=== PATIENT | female | born 1935 | race Caucasian/White ===

== ENCOUNTER 2018-01-14 15:18 | Inpatient (IN) | payer BC ==
[~2018-01-14] VITALS: Ht 160 cm; Wt 69.9 kg
[2018-01-14 15:18] VITALS: BP_SYST 147
[2018-01-14] MEDS ORDERED: NACL 0.9% 1,000 ML IV ONE ×2 (15:45→16:45)
[2018-01-14 15:47] LABS: BILIRUBIN,URINE NEGATIVE (NEGATIVE); COLOR,URINE YELLOW (YELLOW); GLUCOSE,URINE 2+ (NEGATIVE); KETONES,URINE NEGATIVE (NEGATIVE); NITRITE, URINE NEGATIVE (NEGATIVE); PROTEIN URINE 2+ (NEGATIVE)
[2018-01-14 15:57] LABS: BLOOD, URINE TRACE (NEGATIVE); CLARITY/URINE HAZY (CLEAR); LEUKOCYTE ESTERASE ,URINE TRACE (NEGATIVE)
[2018-01-14 15:58] LABS: BACTERIA,URINE FEW /HPF (None Seen); MUCUS,URINE None Seen /LPF (None Seen); RBC,URINE NONE SEEN /HPF (0-3)
[2018-01-14 15:59] LABS: BARBITURATE, URINE NEGATIVE (NEG <=200); BENZODIAZEPINE, URINE POSITIVE (NEG <=150); CANNABINOID, URINE NEGATIVE (NEG <=50); COCAINE, URINE NEGATIVE (NEG <=150); METHAMPHETAMINES SCREEN,URINE NEGATIVE (NEG <=500); OPIATE, URINE NEGATIVE (NEG <=100); PHENCYCLIDINE SCREEN,URINE NEGATIVE (NEG <=25); UR TRICYCLIC ANTIDEPRESSANTS NEGATIVE (NEG <=300); URINE AMPHETAMINE NEGATIVE (NEG <=500); URINE METHADONE NEGATIVE (NEG <=200); URINE OXYCODONE SCREEN NEGATIVE (NEG <=100); URINE PROPOXYPHENE SCREEN NEGATIVE (NEG <=300)
[2018-01-14 16:06] LABS: HEMATOCRIT 35.5 % (36-48); HEMOGLOBIN 12.3 g/dL (12.0-16.0); MEAN CORPUSCULAR HEMOGLOBIN 30 pg (27-31); MEAN CORPUSCULAR HGB CONC 35 % (32-36); MEAN CORPUSCULAR VOLUME 88 fL (79.0-98.0); PLATELET COUNT (AUTO) 198 K/uL (130-430); RED BLOOD CELL COUNT(AUTO) 4.03 MIL/uL (4.2-6.2); WHITE BLOOD COUNT (AUTO) 17.9 K/uL (4.8-10.8)
[2018-01-14 16:07] LABS: INR 1.1 (0.8-1.2); PROTHROMBIN TIME 10.8 SECS (9.5-12.5)
[2018-01-14 16:08] LABS: ANION GAP 13 (5-15); CALCIUM 8.8 mg/dL (8.4-11.0); CHLORIDE 102 mmol/L (98-107); GLUCOSE 177 mg/dL (70-99); POTASSIUM 3.6 mmol/L (3.5-5.1); SODIUM SERUM 137 mmol/L (136-145); UREA NITROGEN, BLOOD 22 mg/dL (8-21)
[2018-01-14 16:13] LABS: ALANINE AMINOTRANSFERASE 16 U/L (12-78); ALBUMIN 3.6 g/dL (3.4-4.8); ASPARTATE AMINOTRANSFERASE 18 U/L (10-37); TOTAL BILIRUBIN 0.6 mg/dL (0.0-1.0)
[2018-01-14 16:20] LABS: BAND % (MANUAL) 6 % (0-6); BASOPHILS % (MANUAL) 0 % (0-2); EOSINOPHILS % (MANUAL) 0 % (0-7); LYMPHOCYTES % (MANUAL) 4 % (20-46); MONOCYTES % (MANUAL) 3 % (0-11)
[2018-01-14] MEDS ORDERED: ACETAMINOPHEN 500 MG TABLET PO ONE (16:30)
[2018-01-14] MEDS ORDERED: cefTRIAXone 1 GM IVPB PREMIX 50 ML IV ONE (16:30)
[2018-01-14] MEDS ORDERED: JANUVIA PO (16:48)
[2018-01-14] MEDS ORDERED: POTASSIUM PO (16:48)
[2018-01-14] MEDS ORDERED: ASPIRIN PO (16:48)
[2018-01-14] MEDS ORDERED: METOPROLOL (16:48)
[2018-01-14] MEDS ORDERED: VITAMIN D PO (16:48)
[2018-01-14] MEDS ORDERED: FUROSEMIDE (16:48)
[2018-01-14] MEDS ORDERED: CLOPIDOGREL PO (16:48)
[2018-01-14] MEDS ORDERED: PANTOPRAZOLE PO (16:48)
[2018-01-14] MEDS ORDERED: SIMVASTATIN (16:48)
[2018-01-14] MEDS ORDERED: FENOFIBRATE PO (16:48)
[2018-01-14 18:08] VITALS: BP_SYST 129
[2018-01-14 20:00] VITALS: BP_SYST 104
[2018-01-14] MEDS ORDERED: ALBUTEROL SULFATE 0.083% 2.5 MG/3 ML VIAL.NEB INH PRN (20:15)
[2018-01-14] MEDS ORDERED: ONDANSETRON HCL 4 MG/2 ML VIAL IVP PRN (20:15)
[2018-01-14] MEDS ORDERED: MORPHINE 2 MG/ML INJ. SYRINGE IVP PRN (20:15)
[2018-01-14 20:30] VITALS: BP_SYST 104
[2018-01-14] MEDS: NACL 0.9% 1,000 ML IV SCH (21:03)
[2018-01-14] MEDS ORDERED: PIPERACILLIN/TAZOBACTAM 2.25 GM VIAL IV ONE (22:03)
[2018-01-14] MEDS: PIPERACILLIN/TAZO 2.25G/DEX-IS 50 ML IV SCH (23:44)
[2018-01-15 00:26] VITALS: BP_SYST 147
[2018-01-15] MEDS ORDERED: PIPERACILLIN/TAZOBACTAM 2.25 GM VIAL IV ONE (01:33)
[2018-01-15] MEDS: ACETAMINOPHEN 325 MG TABLET PO PRN ×2 (02:14→23:57)
[2018-01-15 04:56] LABS: HEMATOCRIT 32.5 % (36-48); HEMOGLOBIN 11.3 g/dL (12.0-16.0); MEAN CORPUSCULAR HEMOGLOBIN 31 pg (27-31); MEAN CORPUSCULAR HGB CONC 35 % (32-36); MEAN CORPUSCULAR VOLUME 89 fL (79.0-98.0); PLATELET COUNT (AUTO) 180 K/uL (130-430); RED BLOOD CELL COUNT(AUTO) 3.66 MIL/uL (4.2-6.2); RED CELL DISTRIBUTION WIDTH 13.9 % (9.0-15.0)
[2018-01-15 04:58] LABS: ANION GAP 10 (5-15); CHLORIDE 106 mmol/L (98-107); CREATININE 1.03 mg/dL (0.55-1.30); GLUCOSE 149 mg/dL (70-99); SODIUM SERUM 140 mmol/L (136-145); UREA NITROGEN, BLOOD 19 mg/dL (8-21)
[2018-01-15 05:06] LABS: ALANINE AMINOTRANSFERASE 15 U/L (12-78); ALBUMIN 2.7 g/dL (3.4-4.8); ASPARTATE AMINOTRANSFERASE 22 U/L (10-37); TOTAL BILIRUBIN 0.5 mg/dL (0.0-1.0)
[2018-01-15] MEDS: NACL 0.9% 1,000 ML IV SCH ×2 (05:07→16:06)
[2018-01-15] MEDS: PIPERACILLIN/TAZO 2.25G/DEX-IS 50 ML IV SCH ×4 (05:07→23:56)
[2018-01-15 08:00] VITALS: BP_SYST 145
[2018-01-15] MEDS ORDERED: POTASSIUM CHLORIDE 20 MEQ/PKT PACKET PO ONE (08:00)
[2018-01-15 10:08] LABS: ATYPICAL LYMPHOCYTES % 0 % (0-0); BAND % (MANUAL) 14 % (0-6); BASOPHILS % (MANUAL) 0 % (0-2); EOSINOPHILS % (MANUAL) 0 % (0-7); LYMPHOCYTES % (MANUAL) 5 % (20-46); MONOCYTES % (MANUAL) 2 % (0-11)
[2018-01-15] MEDS: ALBUTEROL SULFATE 0.083% 2.5 MG/3 ML VIAL.NEB INH SCH ×4 (11:58→23:01)
[2018-01-15 12:00] VITALS: BP_SYST 147
[2018-01-15] MEDS: PANTOPRAZOLE SODIUM 40 MG TAB PO SCH (13:26)
[2018-01-15] MEDS: CLOPIDOGREL BISULFATE 75 MG TABLET PO SCH (13:26)
[2018-01-15] MEDS: ASPIRIN 81 MG TAB.CHEW PO SCH (13:26)
[2018-01-15] MEDS: ENOXAPARIN SODIUM 30 MG/0.3 ML SYRINGE SUBCUT SCH (13:27)
[2018-01-15] MEDS: METOPROLOL TARTRATE 25 MG TABLET PO SCH ×2 (13:28→21:43)
[2018-01-15] MEDS: NITROGLYCERIN 0.2 MG/HR PATCH.TD24 TD SCH (13:28)
[2018-01-15] MEDS: metroNIDAZOLE 500 mg/NS 100 ML IV SCH ×2 (13:37→21:44)
[2018-01-15 16:00] VITALS: BP_SYST 141
[2018-01-15] MEDS ORDERED: VANCOMYCIN HCL 1,000 MG in NS 250 ML IV SCH (16:05)
[2018-01-15 19:50] VITALS: BP_SYST 115
[2018-01-15] MEDS: SIMVASTATIN 20 MG TABLET PO SCH (21:43)
[2018-01-16 00:04] VITALS: BP_SYST 117
[2018-01-16] MEDS: NACL 0.9% 1,000 ML IV SCH (02:38)
[2018-01-16] MEDS: ALBUTEROL SULFATE 0.083% 2.5 MG/3 ML VIAL.NEB INH SCH ×7 (04:24→19:49)
[2018-01-16] MEDS: PIPERACILLIN/TAZO 2.25G/DEX-IS 50 ML IV SCH ×3 (05:07→17:42)
[2018-01-16] MEDS: metroNIDAZOLE 500 mg/NS 100 ML IV SCH (06:22)
[2018-01-16 06:32] LABS: HEMATOCRIT 30.1 % (36-48); HEMOGLOBIN 9.8 g/dL (12.0-16.0); MEAN CORPUSCULAR HEMOGLOBIN 29 pg (27-31); MEAN CORPUSCULAR HGB CONC 33 % (32-36); MEAN CORPUSCULAR VOLUME 90 fL (79.0-98.0); PLATELET COUNT (AUTO) 161 K/uL (130-430); RED BLOOD CELL COUNT(AUTO) 3.33 MIL/uL (4.2-6.2); RED CELL DISTRIBUTION WIDTH 14.4 % (9.0-15.0); WHITE BLOOD COUNT (AUTO) 15.3 K/uL (4.8-10.8)
[2018-01-16 07:02] LABS: ALANINE AMINOTRANSFERASE 15 U/L (12-78); ALBUMIN 2.3 g/dL (3.4-4.8); ANION GAP 9 (5-15); ASPARTATE AMINOTRANSFERASE 16 U/L (10-37); CALCIUM 8.1 mg/dL (8.4-11.0); CHLORIDE 110 mmol/L (98-107); CREATININE 1.09 mg/dL (0.55-1.30); GLUCOSE 115 mg/dL (70-99); POTASSIUM 3.5 mmol/L (3.5-5.1); SODIUM SERUM 143 mmol/L (136-145); TOTAL BILIRUBIN 0.3 mg/dL (0.0-1.0); UREA NITROGEN, BLOOD 18 mg/dL (8-21)
[2018-01-16 08:00] VITALS: BP_SYST 110
[2018-01-16] MEDS: ASPIRIN 81 MG TAB.CHEW PO SCH (08:32)
[2018-01-16] MEDS: CLOPIDOGREL BISULFATE 75 MG TABLET PO SCH (08:32)
[2018-01-16] MEDS: PANTOPRAZOLE SODIUM 40 MG TAB PO SCH (08:32)
[2018-01-16] MEDS: METOPROLOL TARTRATE 25 MG TABLET PO SCH ×2 (08:33→20:34)
[2018-01-16] MEDS: NITROGLYCERIN 0.2 MG/HR PATCH.TD24 TD SCH (08:34)
[2018-01-16] MEDS: ENOXAPARIN SODIUM 30 MG/0.3 ML SYRINGE SUBCUT SCH (08:38)
[2018-01-16 10:44] LABS: BAND % (MANUAL) 5 % (0-6); BASOPHILS % (MANUAL) 0 % (0-2); EOSINOPHILS % (MANUAL) 3 % (0-7); LYMPHOCYTES % (MANUAL) 5 % (20-46); MONOCYTES % (MANUAL) 0 % (0-11)
[2018-01-16] MEDS ORDERED: IPRATROPIUM BROM 0.5 MG/2.5 ML VIAL.NEB (ATROVENT) INH PRN (11:15)
[2018-01-16] MEDS ORDERED: methylPREDNISolone SOD SUCC/PF 62.5 MG/ML VIAL IVP ONE (11:15)
[2018-01-16] MEDS: IPRATROPIUM BROM 0.5 MG/2.5 ML VIAL.NEB (ATROVENT) INH SCH ×3 (11:15→19:48)
[2018-01-16] MEDS ORDERED: ALBUTEROL SULFATE 0.083% 2.5 MG/3 ML VIAL.NEB INH PRN (11:15)
[2018-01-16 12:30] VITALS: BP_SYST 125; BP_SYST 129
[2018-01-16 16:00] VITALS: BP_SYST 128
[2018-01-16] MEDS: INSULIN ASPART 100 UNITS/ML, 10 ML VIAL (NovoLOG) SUBCUT PRN ×2 (17:45→20:36)
[2018-01-16] MEDS ORDERED: FUROSEMIDE 20 MG/2 ML VIAL IVP ONE (18:00)
[2018-01-16 20:00] VITALS: BP_SYST 173
[2018-01-16] MEDS: methylPREDNISolone SOD SUCC/PF 62.5 MG/ML VIAL IVP SCH (20:33)
[2018-01-16] MEDS: SIMVASTATIN 20 MG TABLET PO SCH (20:34)
[2018-01-16 21:40] VITALS: BP_SYST 153
[2018-01-16 22:51] LABS: BILIRUBIN,URINE NEGATIVE (NEGATIVE); BLOOD, URINE NEGATIVE (NEGATIVE); CLARITY/URINE CLEAR (CLEAR); COLOR,URINE YELLOW (YELLOW); GLUCOSE,URINE 3+ (NEGATIVE); KETONES,URINE NEGATIVE (NEGATIVE); LEUKOCYTE ESTERASE ,URINE NEGATIVE (NEGATIVE); NITRITE, URINE NEGATIVE (NEGATIVE); PH,URINE 5.5 (5.0-8.0); PROTEIN URINE NEGATIVE (NEGATIVE); UROBILINOGEN,URINE 0.2 (0.2-1.0)
[2018-01-16] MEDS: PIPERACILLIN/TAZO 3.375/DEX-IS 50 ML IV SCH (23:05)
[2018-01-16 23:19] LABS: BACTERIA,URINE FEW /HPF (None Seen); RBC,URINE 0-3 /HPF (0-3); WBC,URINE 0-3 /HPF (0-3); YEAST,URINE Rare /HPF (None Seen)
[2018-01-17] MEDS: IPRATROPIUM BROM 0.5 MG/2.5 ML VIAL.NEB (ATROVENT) INH SCH ×4 (00:50→19:35)
[2018-01-17] MEDS: ALBUTEROL SULFATE 0.083% 2.5 MG/3 ML VIAL.NEB INH SCH ×4 (00:50→19:35)
[2018-01-17 01:36] VITALS: BP_SYST 157
[2018-01-17] MEDS: PIPERACILLIN/TAZO 3.375/DEX-IS 50 ML IV SCH ×4 (05:03→23:00)
[2018-01-17 06:29] LABS: BASOPHILS % (AUTO) 0.1 % (0.0-2.0); EOSINOPHILS % (AUTO) 0.1 % (0.0-4.0); HEMATOCRIT 32.8 % (36-48); HEMOGLOBIN 11.3 g/dL (12.0-16.0); LYMPHOCYTES # (AUTO) 0.5 K/uL (1.0-5.5); LYMPHOCYTES % (AUTO) 3.7 % (20.5-51.5); MEAN CORPUSCULAR HEMOGLOBIN 30 pg (27-31); MEAN CORPUSCULAR HGB CONC 35 % (32-36); MEAN CORPUSCULAR VOLUME 87 fL (79.0-98.0); MONOCYTES # (AUTO) 0.2 K/uL (0.0-1.0); MONOCYTES % (AUTO) 1.5 % (1.7-9.3); NEUTROPHILS # (AUTO) 13.3 K/uL (1.8-7.7); NEUTROPHILS % (AUTO) 94.6 % (40.0-70.0); PLATELET COUNT (AUTO) 189 K/uL (130-430); RED BLOOD CELL COUNT(AUTO) 3.76 MIL/uL (4.2-6.2); RED CELL DISTRIBUTION WIDTH 14.2 % (9.0-15.0)
[2018-01-17 06:41] LABS: ALANINE AMINOTRANSFERASE 16 U/L (12-78); ALBUMIN 2.6 g/dL (3.4-4.8); ANION GAP 10 (5-15); ASPARTATE AMINOTRANSFERASE 15 U/L (10-37); CALCIUM 8.8 mg/dL (8.4-11.0); CHLORIDE 106 mmol/L (98-107); CREATININE 0.84 mg/dL (0.55-1.30); GLUCOSE 188 mg/dL (70-99); POTASSIUM 3.3 mmol/L (3.5-5.1); SODIUM SERUM 140 mmol/L (136-145); TOTAL BILIRUBIN 0.4 mg/dL (0.0-1.0); UREA NITROGEN, BLOOD 17 mg/dL (8-21)
[2018-01-17 07:13] VITALS: BP_SYST 157
[2018-01-17] MEDS: INSULIN ASPART 100 UNITS/ML, 10 ML VIAL (NovoLOG) SUBCUT PRN ×4 (07:39→20:21)
[2018-01-17 08:20] VITALS: BP_SYST 151
[2018-01-17] MEDS: PANTOPRAZOLE SODIUM 40 MG TAB PO SCH (08:41)
[2018-01-17] MEDS: ASPIRIN 81 MG TAB.CHEW PO SCH (08:41)
[2018-01-17] MEDS: METOPROLOL TARTRATE 25 MG TABLET PO SCH ×2 (08:41→20:16)
[2018-01-17] MEDS: methylPREDNISolone SOD SUCC/PF 62.5 MG/ML VIAL IVP SCH (08:42)
[2018-01-17] MEDS: NITROGLYCERIN 0.2 MG/HR PATCH.TD24 TD SCH (08:42)
[2018-01-17] MEDS: CLOPIDOGREL BISULFATE 75 MG TABLET PO SCH (08:43)
[2018-01-17] MEDS: ENOXAPARIN SODIUM 30 MG/0.3 ML SYRINGE SUBCUT SCH (08:44)
[2018-01-17] MEDS ORDERED: POTASSIUM CHLORIDE 20 MEQ TAB.PRT.SR PO ONE (10:45)
[2018-01-17] MEDS ORDERED: FUROSEMIDE 20 MG/2 ML VIAL IVP ONE ×2 (10:45)
[2018-01-17 11:26] VITALS: BP_SYST 143
[2018-01-17 15:06] VITALS: BP_SYST 133
[2018-01-17 20:00] VITALS: BP_SYST 151
[2018-01-17] MEDS: SIMVASTATIN 20 MG TABLET PO SCH (20:16)
[2018-01-18] MEDS: ALBUTEROL SULFATE 0.083% 2.5 MG/3 ML VIAL.NEB INH SCH ×3 (01:00→13:04)
[2018-01-18] MEDS: IPRATROPIUM BROM 0.5 MG/2.5 ML VIAL.NEB (ATROVENT) INH SCH ×3 (01:00→13:04)
[2018-01-18 01:23] VITALS: BP_SYST 135
[2018-01-18] MEDS: PIPERACILLIN/TAZO 3.375/DEX-IS 50 ML IV SCH (05:06)
[2018-01-18 06:44] LABS: BASOPHILS # (AUTO) 0.1 K/uL (0.0-0.2); BASOPHILS % (AUTO) 0.6 % (0.0-2.0); EOSINOPHILS # (AUTO) 0.1 K/uL (0.0-0.4); HEMOGLOBIN 11.3 g/dL (12.0-16.0); LYMPHOCYTES # (AUTO) 1.2 K/uL (1.0-5.5); MONOCYTES # (AUTO) 0.5 K/uL (0.0-1.0); WHITE BLOOD COUNT (AUTO) 13.9 K/uL (4.8-10.8)
[2018-01-18 06:48] LABS: ANION GAP 8 (5-15); CALCIUM 8.8 mg/dL (8.4-11.0); CHLORIDE 104 mmol/L (98-107); GLUCOSE 129 mg/dL (70-99); POTASSIUM 3.8 mmol/L (3.5-5.1); SODIUM SERUM 139 mmol/L (136-145); UREA NITROGEN, BLOOD 25 mg/dL (8-21)
[2018-01-18 07:04] LABS: EOSINOPHILS % (AUTO) 0.6 % (0.0-4.0); HEMATOCRIT 32.1 % (36-48); LYMPHOCYTES % (AUTO) 8.7 % (20.5-51.5); MEAN CORPUSCULAR HEMOGLOBIN 31 pg (27-31); MEAN CORPUSCULAR HGB CONC 35 % (32-36); MEAN CORPUSCULAR VOLUME 88 fL (79.0-98.0); MONOCYTES % (AUTO) 3.7 % (1.7-9.3); NEUTROPHILS % (AUTO) 86.4 % (40.0-70.0); PLATELET COUNT (AUTO) 239 K/uL (130-430); RED BLOOD CELL COUNT(AUTO) 3.64 MIL/uL (4.2-6.2)
[2018-01-18 08:22] VITALS: BP_SYST 157
[2018-01-18] MEDS: NITROGLYCERIN 0.2 MG/HR PATCH.TD24 TD SCH ×2 (09:00→09:20)
[2018-01-18] MEDS: ENOXAPARIN SODIUM 30 MG/0.3 ML SYRINGE SUBCUT SCH ×2 (09:00→09:21)
[2018-01-18] MEDS: ASPIRIN 81 MG TAB.CHEW PO SCH (09:18)
[2018-01-18] MEDS: PANTOPRAZOLE SODIUM 40 MG TAB PO SCH (09:18)
[2018-01-18] MEDS: CLOPIDOGREL BISULFATE 75 MG TABLET PO SCH (09:18)
[2018-01-18] MEDS: METOPROLOL TARTRATE 25 MG TABLET PO SCH (09:18)
[2018-01-18] MEDS ORDERED: FUROSEMIDE 20 MG/2 ML VIAL IVP ONE (11:30)
[2018-01-18] MEDS ORDERED: AMOXICILLIN/CLAVULANATE POTASSIUM 875 MG TABLET PO ONE (11:45)
[2018-01-18 12:00] VITALS: BP_SYST 153
[2018-01-18 15:50] VITALS: BP_SYST 153
[2018-01-18 16:00] VITALS: BP_SYST 148
[2018-01-18] MEDS: INSULIN ASPART 100 UNITS/ML, 10 ML VIAL (NovoLOG) SUBCUT PRN (17:37)
[2018-01-18] MEDS ORDERED: AMOXICILLIN/CLAVULANATE POTASSIUM 875 MG TABLET PO SCH (21:00)
== END 2018-01-18 18:43 | disposition home health service (06) | DRG 871 ==
LOC: SED 15:18 → STU 17:16
PROVIDERS: ADMIT Internal Medicine; ATTEND Internal Medicine
DX: A41.9 Sepsis, unspecified organism (principal); I50.43 Acute on chronic combined systolic (congestive) and diastolic (congestive) heart failure; N39.0 Urinary tract infection, site not specified; E87.2 Acidosis; B95.5 Unspecified streptococcus as the cause of diseases classified elsewhere; E11.9 Type 2 diabetes mellitus without complications; E78.5 Hyperlipidemia, unspecified; I25.10 Atherosclerotic heart disease of native coronary artery without angina pectoris; Z60.2 Problems related to living alone; T67.5XXA Heat exhaustion, unspecified, initial encounter; X58.XXXA Exposure to other specified factors, initial encounter; I11.0 Hypertensive heart disease with heart failure; D64.9 Anemia, unspecified; J40 Bronchitis, not specified as acute or chronic; J98.01 Acute bronchospasm; Z83.3 Family history of diabetes mellitus; Z87.891 Personal history of nicotine dependence; Z95.1 Presence of aortocoronary bypass graft; Z95.0 Presence of cardiac pacemaker; Z79.899 Other long term (current) drug therapy; Z79.82 Long term (current) use of aspirin; Y93.89 Activity, other specified; Y92.89 Other specified places as the place of occurrence of the external cause; Y99.8 Other external cause status; Z98.61 Coronary angioplasty status
CPT/HCPCS: 36415; 71045; 76700-TC; 80048; 80053; 80307; 81000-TC; 82962; 83036; 83605; 83880; 84134; 84443-TC; 84484; 85007; 85025; 85027; 85610-TC; 87040-TC; 87086; 87186-TC; 93005; 93306; 94640; 94760; 96365; 96366; 97110-GP; 97116-GP; 97530-GP; 99285; J0696; J1650; J1815; J1940; J2543; J2930; J3370; J3490; J7030; J7050; J7613

== ENCOUNTER 2020-08-02 03:44 | Inpatient (IN) | payer BC, SELFPAY ==
[2020-08-02] VITALS (10 sets, daily range): BP systolic 113–152
[~2020-08-02] VITALS: Ht 162.6 cm; Wt 69.4 kg
[~2020-08-02 03:44] MED LIST: ASPIRIN PO; CLOPIDOGREL PO; FENOFIBRATE PO; FUROSEMIDE; JANUVIA PO; METOPROLOL; PANTOPRAZOLE PO; POTASSIUM PO; SIMVASTATIN; VITAMIN D PO
--- NOTE | 2020-08-02 03:45 | NUR ---
Received patient to ER via ALS ambulance w/ c/o sob. Patient h/o CHF, COPD, Pacemaker, and HTN noted to have pox of 72% on RA but placed on 15l NRB increased to 91%. (+) accessory myos use w/ retractions, (+) JVD. Introduced self to patient, positioned for comfort. Bed to low position sr up. Continue to monitor. RT notified for possible placed on bipap.
--- NOTE | 2020-08-02 03:50 | NUR ---
MODESTO Hahn at bedside examining patient.
[2020-08-02] MEDS ORDERED: IPRATROPIUM/ALBUTEROL SULFATE 3 ML AMPUL.NEB (DUONEB) INH ONE (04:00)
[2020-08-02] MEDS ORDERED: AZITHROMYCIN 500 MG in NS 250 ML IV ONE (04:00)
[2020-08-02] MEDS ORDERED: cefTRIAXone 1 GM IVPB PREMIX 50 ML IV ONE (04:00)
[2020-08-02] MEDS ORDERED: DEXAMETHASONE SOD PHOSPHATE 4 MG/ML VIAL IVP ONE (04:00)
[2020-08-02] MEDS ORDERED: LORazepam 2 MG/ML VIAL IVP ONE (04:00)
[2020-08-02] MEDS ORDERED: AZITHROMYCIN 500 MG/VIAL (ZITHROMAX) IV ONE (04:15)
[2020-08-02 04:36] LABS: BASOPHILS # (AUTO) 0.1 K/uL (0.0-0.2); EOSINOPHILS % (AUTO) 0.4 % (0.0-4.0); HEMATOCRIT 38.5 % (36-48); HEMOGLOBIN 12.8 g/dL (12.0-16.0); LYMPHOCYTES # (AUTO) 0.8 K/uL (1.0-5.5); MEAN CORPUSCULAR HEMOGLOBIN 29 pg (27-31); MEAN CORPUSCULAR HGB CONC 33 % (32-36); MEAN CORPUSCULAR VOLUME 89 fL (79.0-98.0); MONOCYTES # (AUTO) 0.5 K/uL (0.0-1.0); MONOCYTES % (AUTO) 4.9 % (1.7-9.3); NEUTROPHILS # (AUTO) 9.5 K/uL (1.8-7.7); NEUTROPHILS % (AUTO) 86.7 % (40.0-70.0); PLATELET COUNT (AUTO) 234 K/uL (130-430); RED BLOOD CELL COUNT(AUTO) 4.33 MIL/uL (4.2-6.2); RED CELL DISTRIBUTION WIDTH 14.8 % (9.0-15.0); WHITE BLOOD COUNT (AUTO) 10.9 K/uL (4.8-10.8)
[2020-08-02 04:41] LABS: ANION GAP 15 (5-15); CALCIUM 7.8 mg/dL (8.4-11.0); CHLORIDE 100 mmol/L (98-107); CREATININE 1.04 mg/dL (0.55-1.30); GLUCOSE 252 mg/dL (70-99); SODIUM SERUM 137 mmol/L (136-145); UREA NITROGEN, BLOOD 10 mg/dL (8-21)
[2020-08-02 04:46] LABS: ALANINE AMINOTRANSFERASE 6 U/L (12-78); ASPARTATE AMINOTRANSFERASE 26 U/L (10-37); LACTATE DEHYDROGENASE 348 U/L (81-234); TOTAL BILIRUBIN 0.7 mg/dL (0.0-1.0)
[2020-08-02 04:50] LABS: C-REACTIVE PROTEIN QUANT 14.5 mg/dL (0-0.5)
[2020-08-02 05:00] LABS: FIBRINOGEN 551 mg/dL (200-400)
[2020-08-02 05:02] LABS: POTASSIUM 2.9 mmol/L (3.5-5.1)
[2020-08-02] MEDS ORDERED: IOHEXOL 350 mgI/mL, 150 ML INFUS..BTL IV ONE (05:05)
--- NOTE | 2020-08-02 05:15 | NUR ---
Patient resting quietly. No acute distress noted. Vital signs within normal range.
--- NOTE | 2020-08-02 05:30 | NUR ---
Patient transported to radiology via gurney, accompanied by Salo KING on cardiac rehab nurse per ACLS protocol.
--- NOTE | 2020-08-02 05:43 | NUR ---
Returned from radiology, back to [facility].
[2020-08-02] MEDS ORDERED: NACL 0.9% 1,000 ML IV ONE (06:30)
[2020-08-02] MEDS ORDERED: POTASSIUM CHLORIDE 20 MEQ TAB.PRT.SR PO ONE (06:30)
[2020-08-02] MEDS ORDERED: ASPIRIN 325 MG TABLET PO ONE (06:30)
[2020-08-02] MEDS ORDERED: ASPIRIN 81 MG TAB.CHEW ONE (06:33)
--- NOTE | 2020-08-02 07:40 | NUR ---
assessment done, resting no signs of distress or discomfort
[2020-08-02] MEDS ORDERED: ENOXAPARIN SODIUM 60 MG/0.6 ML SYRINGE SUBCUT ONE (07:45)
[2020-08-02] MEDS ORDERED: DEXTROSE 50% JECT 50 ML DISP.SYRIN IVP PRN (08:30)
[2020-08-02] MEDS ORDERED: IPRATROPIUM BROM 0.5 MG/2.5 ML VIAL.NEB (ATROVENT) INH PRN (08:30)
[2020-08-02 08:42] LABS: INR 1.1 (0.8-1.2)
--- NOTE | 2020-08-02 08:44 | NUR ---
resp. here unable to obtain ABG at this time will attempt later.
[2020-08-02] MEDS ORDERED: ALBUTEROL MDI INHALATION 8 GM INH INH PRN (08:45)
[2020-08-02] MEDS: ALBUTEROL MDI INHALATION 8 GM INH INH SCH ×3 (09:00→20:20)
--- NOTE | 2020-08-02 09:32 | NUR ---
CARDIAC CONSULT CALLED [facility] CALLED AT [phone] TO MAKE A CONSULT WITH GER DANIEL FOR ELEVATED TROPONIN.
[2020-08-02] MEDS ORDERED: LORazepam 2 MG/ML VIAL ONE (09:39)
--- NOTE | 2020-08-02 09:50 | NUR ---
u/s being done pt. crying and agitated ativan given.
--- NOTE | 2020-08-02 11:00 | NUR ---
pt. sleeping at this time VSS
--- NOTE | 2020-08-02 12:01 | NUR ---
VSS remain stable, sleeping
[2020-08-02] MEDS ORDERED: INSULIN REGULAR, HUMAN 10 UNITS/0.1 ML INJ ONE (12:13)
[2020-08-02] MEDS: INSULIN REGULAR, HUMAN 100 UNITS/ML, 10 ML VIAL (humuLIN R) SUBCUT PRN ×2 (12:18→17:39)
[2020-08-02] MEDS: DEXAMETHASONE SOD PHOSPHATE 10 MG/ML VIAL IVP SCH (12:19)
[2020-08-02] MEDS: ENOXAPARIN SODIUM 80 MG/0.8 ML SYRINGE SUBCUT SCH ×2 (12:20→20:17)
[2020-08-02] MEDS ORDERED: IPRATROPIUM BROM 0.5 MG/2.5 ML VIAL.NEB (ATROVENT) INH SCH (13:00)
--- NOTE | 2020-08-02 13:00 | NUR ---
Pt asleep no distress noted
[2020-08-02] MEDS ORDERED: FUROSEMIDE 40 MG/4 ML VIAL IVP ONE (14:15)
--- NOTE | 2020-08-02 14:30 | NUR ---
Pt comfortable in [facility]
--- NOTE | 2020-08-02 15:15 | NUR ---
ASSUMED CARE OF PT. PT BED CHANGED AND PT POSITIONED FOR COMFORT ONTO RIGHT LATERAL SIDE.
[2020-08-02] MEDS ORDERED: PRO40 PO (16:00)
[2020-08-02] MEDS ORDERED: LEVO25TA7 PO (16:00)
[2020-08-02] MEDS ORDERED: METO25TA3 PO (16:00)
[2020-08-02] MEDS ORDERED: SIMV10TA2 PO (16:00)
[2020-08-02] MEDS ORDERED: GUAI600T45 PO (16:00)
[2020-08-02] MEDS ORDERED: ACET-2439 PO (16:00)
[2020-08-02] MEDS ORDERED: CLOP75TA32 PO (16:00)
[2020-08-02] MEDS ORDERED: LOPE2CAP PO (16:00)
[2020-08-02] MEDS ORDERED: FERR-69 PO (16:00)
[2020-08-02] MEDS ORDERED: CYAN100010 PO (16:00)
[2020-08-02] MEDS ORDERED: ERGO50CA PEG (16:00)
[2020-08-02] MEDS ORDERED: DIVA-74 PO (16:00)
[2020-08-02] MEDS ORDERED: ASPI-1457 PO (16:00)
[2020-08-02] MEDS ORDERED: IPRA3AMP9 INH (16:00)
[2020-08-02] MEDS ORDERED: GUAI100S14 PO (16:00)
--- NOTE | 2020-08-02 16:00 | NUR ---
Medication reconciliation completed with information provided by REINA. Any prior medication reconciliation on file was reviewed and corrected.
--- NOTE | 2020-08-02 16:02 | NUR ---
1000ML CLEAR YELLOW URINE REMOVED FROM LOCKETT.
--- NOTE | 2020-08-02 16:04 | NUR ---
ECHO BEING FINISHED AT BEDSIDE.
--- NOTE | 2020-08-02 16:05 | NUR ---
Transfer to ICU 124B via ACLS protocol. Licensed nurse present. IV present no signs or symptoms of infiltration.
--- NOTE | 2020-08-02 16:30 | NUR ---
MRSA SWAB OBTAINED AND SENT
--- NOTE | 2020-08-02 16:58 | NUR ---
INFECTIOUS DISEASE CONSULTED NIGHAT LOYA CONSULTED AT [phone] SPOKE WITH TAPAN WHITAKER.
--- NOTE | 2020-08-02 17:00 | NUR ---
ADMISSION NOTES: RECEIVED PT FROM E.R. C/O RN JED, PT IS AA, CRIES WHEN TOUCHED OR MOVE, DOES NOT VERBALIZE. UNABLE TO DO ADMISSION QUESTIONAIRE. HISTORY BASE ON MEDICAL RECORDS.
--- NOTE | 2020-08-02 18:05 | NUR ---
Chance HOLLIDAY, UNABLE TO GET ENOUGH ABG SAMPLE PT IS MOVING A LOT AND CRIES WHEN TOUCHED AND HELD.
--- NOTE | 2020-08-02 18:06 | NUR ---
DR RODAS WAS HERE AND SEEN PT.
--- NOTE | 2020-08-02 19:41 | NUR ---
pt endorsed to night alfonso salazar. pt resting in bed, vitals wnl. this rn spoke with board and care facility business machines teacher. per business machines teacher, pt is normally verbal, eats by herself,drinks coffee and tea and take her medications whole.
--- NOTE | 2020-08-02 19:42 | NUR ---
INITIAL NOTE PATIENT IS STABLE AND RESTING IN BED. NO S/S OF RESPIRATORY DISTRESS NOTED. CALL LIGHT IN REACH. PATIENT UNSUCCESSFULLY DEMONSTRATES USAGE OF CALL LIGHT. BED IS LOCKED, ALARMED, AND AT THE LOWEST POSITION. FALL, SAFETY, ASPIRATION, AND RESPIRATORY PRECAUTIONS WILL BE IN PLACE THROUGHOUT THE SHIFT. PLAN OF CARE IS DISCUSSED WITH THE PATIENT.
[2020-08-02] MEDS ORDERED: NOREPINEPHRINE BITARTRATE 4 MG in NS 246 ML IV PRN (21:30)
[2020-08-03] VITALS (23 sets, daily range): BP systolic 118–152
[2020-08-03] MEDS: ALBUTEROL MDI INHALATION 8 GM INH INH SCH ×4 (01:13→20:08)
--- NOTE | 2020-08-03 02:01 | NUR ---
RT note Oxymizer lpm titrate down to 8lpm from 10lpm. Pt john the new settings with SPO2 98.
--- NOTE | 2020-08-03 07:26 | NUR ---
COMMUNICATED FAMILY ABOUT CODE STATUS. LEFT A NOTE FOR TO CALL [facility] ([facility] [phone]. ENDORSED TO AM NURSE AND CHARGE. Addendum: 08/03/20 at 0729 by Hosea Payne RN FAMILY COMMUNICATED ABOUT CODE STATUS. LEFT A NOTE FOR TO CALL [facility] [phone]. ENDORSED TO AM NURSE AND CHARGE.*
--- NOTE | 2020-08-03 07:27 | NUR ---
SBAR REPORT ENDORSE TO FERNANDO MATA.
[2020-08-03] MEDS: FUROSEMIDE 40 MG/4 ML VIAL IVP SCH (08:28)
[2020-08-03] MEDS: cefTRIAXone 1 GM in D5W 50 ML IV SCH (08:28)
[2020-08-03] MEDS: DEXAMETHASONE SOD PHOSPHATE 10 MG/ML VIAL IVP SCH (08:28)
[2020-08-03] MEDS: ASPIRIN 81 MG TABLET(ECOTRIN) PO SCH (08:54)
[2020-08-03] MEDS: AZITHROMYCIN 500 MG in NS 250 ML IV SCH (08:54)
[2020-08-03] MEDS: ATORVASTATIN 20 MG TABLET PO SCH (08:54)
[2020-08-03] MEDS: ENOXAPARIN SODIUM 80 MG/0.8 ML SYRINGE SUBCUT SCH ×2 (08:57→21:00)
--- NOTE | 2020-08-03 09:58 | NUR ---
Nutrition Update Art Scale 14 noted. Pt admitted for COVID, PNA, respiratory failure Diet: 2gm Na BMI: 26.3 g/m2 RD to follow per nutrition care standards.
--- NOTE | 2020-08-03 10:00 | NUR ---
PT RESTING IN BED, NO SOB, NO RESP DISTRESS. CONTINUALLY ON O2 OXIMIZER 8 LI.
[2020-08-03 11:14] LABS: ALANINE AMINOTRANSFERASE 12 U/L (12-78); ALBUMIN 2.2 g/dL (3.4-4.8); ANION GAP 13 (5-15); ASPARTATE AMINOTRANSFERASE 31 U/L (10-37); CALCIUM 7.6 mg/dL (8.4-11.0); CHLORIDE 105 mmol/L (98-107); CREATININE 0.99 mg/dL (0.55-1.30); GLUCOSE 171 mg/dL (70-99); SODIUM SERUM 142 mmol/L (136-145); TOTAL BILIRUBIN 0.3 mg/dL (0.0-1.0); UREA NITROGEN, BLOOD 24 mg/dL (8-21)
[2020-08-03] MEDS: INSULIN REGULAR, HUMAN 100 UNITS/ML, 10 ML VIAL (humuLIN R) SUBCUT PRN ×2 (11:40→17:14)
--- NOTE | 2020-08-03 12:10 | NUR ---
PT ASSISTED WITH LUNCH TRAY, CUT UP MEAT.
[2020-08-03] MEDS ORDERED: LOSARTAN POTASSIUM 25 MG TABLET PO ONE (12:30)
[2020-08-03] MEDS ORDERED: KCL 40 mEq in 100 mL (PREMIX) 100 ML IV ONE (12:30)
[2020-08-03] MEDS ORDERED: POTASSIUM CHLORIDE 40 MEQ in NS 250 ML IV ONE (13:00)
--- NOTE | 2020-08-03 16:10 | NUR ---
DR Virgilio MASSEY WAS HERE AND SEEN PT. INFORMED MD THAT REMDESISIVIR WAS DELEYED DUE TO RX NOT AVAILABLE YESTERDAY AND RX SCHEDULED THEM LATE TODAY.
--- NOTE | 2020-08-03 17:20 | NUR ---
DR RODAS WAS HERE AND SEEN PT. INFORMED MD THAT PT IS DOING OKAY, INFORMED MD THAT OXIMIZER WAS DECREASED FROM 8LI/MIN TO 4 AND PT TOLERATING WELL.
--- NOTE | 2020-08-03 18:41 | NUR ---
PT STATED SHE WANTS TO GET OUT OF HERE, EXPLAINED TO PATIENT SHE NEEDS TO STAYS HERE SHE STILL NEEDS ANTIBIOTICS AND OTHER MEDS FOR THE COVID. PT BECAME ANGRY, REFUSED TO HAVE HER OXIMIZER. EXPLAINED TO PT THAT SHE STILL NEEDS THE OXYGEN BECAUSE HER SATURATION STILL IS GOING DOWN. PT REFUSED. WILL TRY AGAIN LATER AND WILL CONT TO MONITOR PT.
[2020-08-03] MEDS: ASCORBIC ACID 500 MG TABLET PO SCH (21:00)
[2020-08-04] VITALS (16 sets, daily range): BP systolic 122–179
[2020-08-04] MEDS: ALBUTEROL MDI INHALATION 8 GM INH INH SCH ×5 (02:11→19:55)
[2020-08-04 06:46] LABS: ANION GAP 8 (5-15); CALCIUM 7.9 mg/dL (8.4-11.0); CHLORIDE 104 mmol/L (98-107); CREATININE 0.95 mg/dL (0.55-1.30); GLUCOSE 125 mg/dL (70-99); POTASSIUM 3.4 mmol/L (3.5-5.1); SODIUM SERUM 141 mmol/L (136-145); UREA NITROGEN, BLOOD 29 mg/dL (8-21)
[2020-08-04 06:47] LABS: BASOPHILS # (AUTO) 0.1 K/uL (0.0-0.2); BASOPHILS % (AUTO) 0.9 % (0.0-2.0); EOSINOPHILS # (AUTO) 0.1 K/uL (0.0-0.4); EOSINOPHILS % (AUTO) 1.1 % (0.0-4.0); HEMATOCRIT 34.3 % (36-48); HEMOGLOBIN 11.5 g/dL (12.0-16.0); LYMPHOCYTES # (AUTO) 0.9 K/uL (1.0-5.5); LYMPHOCYTES % (AUTO) 7.1 % (20.5-51.5); MEAN CORPUSCULAR HEMOGLOBIN 30 pg (27-31); MEAN CORPUSCULAR HGB CONC 34 % (32-36); MEAN CORPUSCULAR VOLUME 88 fL (79.0-98.0); MONOCYTES # (AUTO) 0.8 K/uL (0.0-1.0); MONOCYTES % (AUTO) 6.4 % (1.7-9.3); NEUTROPHILS % (AUTO) 84.5 % (40.0-70.0); PLATELET COUNT (AUTO) 327 K/uL (130-430); RED BLOOD CELL COUNT(AUTO) 3.89 MIL/uL (4.2-6.2); RED CELL DISTRIBUTION WIDTH 14.5 % (9.0-15.0)
[2020-08-04 06:52] LABS: ALANINE AMINOTRANSFERASE 12 U/L (12-78); ALBUMIN 2.2 g/dL (3.4-4.8); ASPARTATE AMINOTRANSFERASE 25 U/L (10-37); LACTATE DEHYDROGENASE 357 U/L (81-234); TOTAL BILIRUBIN 0.3 mg/dL (0.0-1.0)
[2020-08-04 07:07] LABS: INR 1.1 (0.8-1.2); PROTHROMBIN TIME 11.2 SECS (9.5-12.5)
--- NOTE | 2020-08-04 07:35 | NUR ---
Opening Note Received bedside report from endorsing RN for continuation of care. Received patient awake and resting in bed, patient denies any pain or SOB at this time. No signs or symptoms of acute distress noted. Bed locked in lowest position, bed alarm on, and call light within reach. Fall and safety precautions in place. All needs met.
[2020-08-04 08:03] LABS: C-REACTIVE PROTEIN QUANT 6.5 mg/dL (0-0.5)
[2020-08-04] MEDS: LOSARTAN POTASSIUM 25 MG TABLET PO SCH (09:00)
[2020-08-04] MEDS: AZITHROMYCIN 500 MG in NS 250 ML IV SCH (09:00)
[2020-08-04] MEDS: ENOXAPARIN SODIUM 80 MG/0.8 ML SYRINGE SUBCUT SCH ×2 (09:00→21:15)
[2020-08-04] MEDS: DEXAMETHASONE SOD PHOSPHATE 10 MG/ML VIAL IVP SCH (09:00)
[2020-08-04] MEDS: CHOLECALCIFEROL (VITAMIN D3) 2,000 UNIT TABLET PO SCH (09:02)
[2020-08-04] MEDS: ASCORBIC ACID 500 MG TABLET PO SCH ×2 (09:02→21:15)
[2020-08-04] MEDS: ASPIRIN 81 MG TABLET(ECOTRIN) PO SCH (09:02)
[2020-08-04] MEDS: FUROSEMIDE 40 MG/4 ML VIAL IVP SCH (09:02)
[2020-08-04] MEDS: ATORVASTATIN 20 MG TABLET PO SCH (09:03)
[2020-08-04] MEDS: cefTRIAXone 1 GM in D5W 50 ML IV SCH (12:59)
--- NOTE | 2020-08-04 13:13 | NUR ---
Dietitian Recommendations *Recommend: [facility] Cardiac diet w/ Glucerna TID. Please see Nutritional Assessment for details. ABDELRAHMAN, RD
--- NOTE | 2020-08-04 14:03 | NUR ---
Hospice Eval: [facility]LA received an order for hospice eval. KEYLA phoned dtr Felicity @ [phone] who is agreeable to hospice and no preference on agency. Per Felicity, pt lives at a board and care and is agreeable for patient to go back if ok by [facility] executive services administrator. KEYLA phoned Giselle from [facility] (p:[phone]) who stated pt can go back with hospice if cleared with Covid; which the patient is not at the moment. Telma with HCP notified and is looking into inpatient hospice; Telma to update SS. Addendum: 08/04/20 at 1519 by Ric RAMIRES Pt is referred to [facility] (Shanna, p:[phone], f:[phone]) and clinicals faxed. SS will follow up.
--- NOTE | 2020-08-04 15:41 | NUR ---
Transfer to Telemetry Patient transferred to telemetry unit room 121-A on hospital bed and oxygen using ACLS protocol. ACLS RN present at all times. Endorsed bedside report to MST RN using SBAR approach for continuation of care.
[2020-08-04] MEDS: INSULIN REGULAR, HUMAN 100 UNITS/ML, 10 ML VIAL (humuLIN R) SUBCUT PRN (18:55)
[2020-08-05] VITALS: BP_SYST 129
[2020-08-05] MEDS: INSULIN REGULAR, HUMAN 100 UNITS/ML, 10 ML VIAL (humuLIN R) SUBCUT PRN ×3 (00:10→17:43)
[2020-08-05] MEDS: ALBUTEROL MDI INHALATION 8 GM INH INH SCH ×3 (01:00→19:15)
[2020-08-05] MEDS: ENOXAPARIN SODIUM 80 MG/0.8 ML SYRINGE SUBCUT SCH ×2 (07:00→21:00)
[2020-08-05 08:00] VITALS: BP_SYST 145
[2020-08-05] MEDS: DEXAMETHASONE SOD PHOSPHATE 10 MG/ML VIAL IVP SCH (09:00)
[2020-08-05] MEDS: ASCORBIC ACID 500 MG TABLET PO SCH ×2 (09:00→21:20)
[2020-08-05] MEDS: ATORVASTATIN 20 MG TABLET PO SCH (09:00)
[2020-08-05] MEDS: FUROSEMIDE 40 MG/4 ML VIAL IVP SCH (09:00)
[2020-08-05] MEDS: LOSARTAN POTASSIUM 25 MG TABLET PO SCH (09:00)
[2020-08-05] MEDS: cefTRIAXone 1 GM in D5W 50 ML IV SCH (09:00)
[2020-08-05] MEDS: AZITHROMYCIN 500 MG in NS 250 ML IV SCH (09:00)
[2020-08-05] MEDS: ASPIRIN 81 MG TABLET(ECOTRIN) PO SCH (09:00)
[2020-08-05] MEDS: CHOLECALCIFEROL (VITAMIN D3) 2,000 UNIT TABLET PO SCH (09:00)
[2020-08-05 10:03] LABS: ALANINE AMINOTRANSFERASE 11 U/L (12-78); ALBUMIN 2.1 g/dL (3.4-4.8); ANION GAP 8 (5-15); ASPARTATE AMINOTRANSFERASE 27 U/L (10-37); CALCIUM 8.1 mg/dL (8.4-11.0); CHLORIDE 105 mmol/L (98-107); CREATININE 0.75 mg/dL (0.55-1.30); GLUCOSE 178 mg/dL (70-99); POTASSIUM 3.2 mmol/L (3.5-5.1); SODIUM SERUM 141 mmol/L (136-145); TOTAL BILIRUBIN 0.4 mg/dL (0.0-1.0); UREA NITROGEN, BLOOD 23 mg/dL (8-21)
[2020-08-05 11:12] VITALS: BP_SYST 145
[2020-08-05 11:34] VITALS: BP_SYST 117
[2020-08-05 15:28] VITALS: BP_SYST 135
[2020-08-05 20:00] VITALS: BP_SYST 137
[2020-08-06] VITALS: BP_SYST 132
[2020-08-06] MEDS: ALBUTEROL MDI INHALATION 8 GM INH INH SCH ×4 (01:00→19:30)
[2020-08-06 08:00] VITALS: BP_SYST 137
[2020-08-06 08:06] LABS: ALANINE AMINOTRANSFERASE 13 U/L (12-78); ANION GAP 9 (5-15); ASPARTATE AMINOTRANSFERASE 15 U/L (10-37); CALCIUM 7.6 mg/dL (8.4-11.0); CHLORIDE 104 mmol/L (98-107); CREATININE 0.66 mg/dL (0.55-1.30); GLUCOSE 123 mg/dL (70-99); POTASSIUM 3.1 mmol/L (3.5-5.1); SODIUM SERUM 140 mmol/L (136-145); UREA NITROGEN, BLOOD 22 mg/dL (8-21)
--- NOTE | 2020-08-06 08:21 | NUR ---
Hospice Update: [facility] has met with family and signed consents. [facility] to update for placement. SS will follow up. Addendum: 08/06/20 at 1458 by Ric RAMIRES Received a call from Shanna with [facility]. They have been trying to contact senior contracts administrator from [facility] to see if patient can go back but unable. [facility] will update SS.
[2020-08-06] MEDS: cefTRIAXone 1 GM in D5W 50 ML IV SCH (08:29)
[2020-08-06] MEDS: ASPIRIN 81 MG TABLET(ECOTRIN) PO SCH (08:30)
[2020-08-06] MEDS: DEXAMETHASONE SOD PHOSPHATE 10 MG/ML VIAL IVP SCH (08:30)
[2020-08-06] MEDS: AZITHROMYCIN 500 MG in NS 250 ML IV SCH (08:30)
[2020-08-06] MEDS: ATORVASTATIN 20 MG TABLET PO SCH (08:30)
[2020-08-06] MEDS: ENOXAPARIN SODIUM 80 MG/0.8 ML SYRINGE SUBCUT SCH ×2 (08:31→21:15)
[2020-08-06] MEDS: CHOLECALCIFEROL (VITAMIN D3) 2,000 UNIT TABLET PO SCH (08:31)
[2020-08-06] MEDS: ASCORBIC ACID 500 MG TABLET PO SCH ×2 (08:31→21:15)
[2020-08-06 08:44] LABS: TOTAL BILIRUBIN 0.1 mg/dL (0.0-1.0)
[2020-08-06] MEDS: FUROSEMIDE 40 MG/4 ML VIAL IVP SCH (08:45)
[2020-08-06] MEDS: LOSARTAN POTASSIUM 25 MG TABLET PO SCH (08:45)
[2020-08-06] MEDS ORDERED: POTASSIUM CHLORIDE 20 MEQ/PKT PACKET PO ONE (11:15)
[2020-08-06] MEDS: INSULIN REGULAR, HUMAN 100 UNITS/ML, 10 ML VIAL (humuLIN R) SUBCUT PRN ×3 (11:44→18:26)
[2020-08-06 12:00] VITALS: BP_SYST 142
[2020-08-06 16:00] VITALS: BP_SYST 149
[2020-08-06 20:00] VITALS: BP_SYST 134
[2020-08-07] VITALS: BP_SYST 138
[2020-08-07] MEDS: ALBUTEROL MDI INHALATION 8 GM INH INH SCH ×4 (00:51→19:50)
[2020-08-07 07:41] LABS: ALANINE AMINOTRANSFERASE 12 U/L (12-78); ANION GAP 7 (5-15); ASPARTATE AMINOTRANSFERASE 20 U/L (10-37); CALCIUM 7.8 mg/dL (8.4-11.0); CHLORIDE 103 mmol/L (98-107); CREATININE 0.69 mg/dL (0.55-1.30); GLUCOSE 181 mg/dL (70-99); POTASSIUM 3.6 mmol/L (3.5-5.1); SODIUM SERUM 138 mmol/L (136-145); TOTAL BILIRUBIN 0.3 mg/dL (0.0-1.0); UREA NITROGEN, BLOOD 20 mg/dL (8-21)
--- NOTE | 2020-08-07 07:51 | NUR ---
INFORMED US WHITNEY, PT'S O2 SAT IS 83%. WILL TELL FERNANDO GRAFF.
[2020-08-07 08:00] VITALS: BP_SYST 162
[2020-08-07] MEDS: cefTRIAXone 1 GM in D5W 50 ML IV SCH (08:11)
[2020-08-07] MEDS: DEXAMETHASONE SOD PHOSPHATE 10 MG/ML VIAL IVP SCH (08:11)
[2020-08-07] MEDS: AZITHROMYCIN 500 MG in NS 250 ML IV SCH (08:11)
[2020-08-07] MEDS: LOSARTAN POTASSIUM 25 MG TABLET PO SCH (08:12)
[2020-08-07] MEDS: ATORVASTATIN 20 MG TABLET PO SCH (08:12)
[2020-08-07] MEDS: CHOLECALCIFEROL (VITAMIN D3) 2,000 UNIT TABLET PO SCH (08:12)
[2020-08-07] MEDS: FUROSEMIDE 40 MG/4 ML VIAL IVP SCH (08:12)
[2020-08-07] MEDS: ASCORBIC ACID 500 MG TABLET PO SCH ×2 (08:12→21:00)
[2020-08-07] MEDS: ASPIRIN 81 MG TABLET(ECOTRIN) PO SCH (08:12)
--- NOTE | 2020-08-07 08:13 | NUR ---
I WAS INFORMED PATIENT WAS DESATURATING HOWEVER THE READING ISN'T CORRECT. I WENT INTO THE ROOM AND USE THE VITAL SIGN MACHINE AND ASSESSED THE PATIENT FOR ABOUT 10 MINUTES. THE VITAL SIGN MACHINE SHOWS THE PATIENT IS SATURATING AROUND 96 PERCENT. SHE ISN'T IN DISTRESS. SHE'S ACTUALLY SITTING UP AND EATING. i ASSESSED THE PATIENT TO ANOTHER POSITION, GAVE MEDICATION AND TALKED WITH THE PATIENT THROUGHOUT THIS TIME AND HER O2 NEVER DECREASED. UPON LEAVING THE ROOM SHE WAS STILL BETWEEN 94 AND 96 PERCENT. SHE SAID SHE WAS FEELING FINE AND NOT SHORT OF BREATH.
--- NOTE | 2020-08-07 08:51 | NUR ---
[facility] Received a voicemail from patient's niece, Felicity Santizo [phone], requesting an update. Consents have been signed with [facility]. Felicity would prefer patient return to her [facility] with hospice if possible. Verified phone number of [facility], . Phoned Shanna with [facility], p [phone] f [phone], and left a voicemail requesting an update. Addendum: 08/07/20 at 1031 by Veronica Duke LCSW Shanna with [facility] returned my call. Patient's board and care is not returning [facility] calls. [facility] has found another [facility]. Phoned Laura at [place] [address] [facility], . She stated that [facility] did not offer to provide training or PPE to help care for this Covid positive patient. There is another Covid positive patient in the facility. She thinks that Nancy at [facility], p [phone] f [phone], would be able to assist her with training and PPE. Phoned Nancy. She stated that she can provide the facility with PPE. Laura stated she does want patient to return to her [facility]. Phoned Shanna with [facility] and told her of above. She will follow up. Addendum: 08/07/20 at 1149 by Veronica Duke LCSW Shanna with [facility] called. They offered training to patient's existing B[facility] but expect [facility] to provide their own PPE. [facility] have found a private room for patient at [facility] in [place]. Makaylalinda Blevins is to go check on it. [facility] hopes to arrange discharge today. [facility] nurse will come and reassess the patient today. Notified Laura, customer account administrator of [place] [address], of above Addendum: 08/07/20 at 1647 by Veronica Duke LCSW Shanna with [facility] called. They have worked things out with patient's prior B[facility]. The plan is for patient to return today to [place] [address] [facility] with [facility].
[2020-08-07] MEDS: ENOXAPARIN SODIUM 80 MG/0.8 ML SYRINGE SUBCUT SCH ×2 (09:35→21:00)
--- NOTE | 2020-08-07 09:51 | NUR ---
PATIENT IS STILL DOING OK ON THE CURRENTLY OXYGEN. SATURATION IS ABOVE 92 PERCENT.
[2020-08-07 12:51] VITALS: BP_SYST 151
[2020-08-07] MEDS: INSULIN REGULAR, HUMAN 100 UNITS/ML, 10 ML VIAL (humuLIN R) SUBCUT PRN ×3 (13:01→17:26)
[2020-08-07 16:00] VITALS: BP_SYST 146
[2020-08-07 20:00] VITALS: BP_SYST 133
[2020-08-07 21:00] VITALS: BP_SYST 133
--- NOTE | 2020-08-07 21:10 | NUR ---
[facility] CALLED : CALLED JAMARI FROM [facility] , PER HER DC IV CATH , KEEP LOCKETT CATH , PT IS GOING TO [facility] , PT WILL BE FULL CODE UNTIL SHE REACH THERE . PRIMARY RN NOTIFIED ABOUT IT .
== END 2020-08-07 22:05 | disposition hospice, home (50) | DRG 871 ==
LOC: SED 03:44 → SIC 07:48 → STU 08-04 15:37
PROVIDERS: ADMIT Internal Medicine Hospice and Palliative Medicine; ATTEND Internal Medicine Hospice and Palliative Medicine
PROC: XW033E5 Introduction of Remdesivir Anti-infective into Peripheral Vein, Percutaneous Approach, New Technology Group 5 (ICD-10-PCS; principal; 2020-08-03)
DX: A41.89 Other specified sepsis (principal); J12.82 Pneumonia due to coronavirus disease 2019; U07.1 COVID-19; I50.43 Acute on chronic combined systolic (congestive) and diastolic (congestive) heart failure; J80 Acute respiratory distress syndrome; J44.0 Chronic obstructive pulmonary disease with (acute) lower respiratory infection; G93.40 Encephalopathy, unspecified; Z51.5 Encounter for palliative care; E11.9 Type 2 diabetes mellitus without complications; E78.5 Hyperlipidemia, unspecified; E87.6 Hypokalemia; I11.0 Hypertensive heart disease with heart failure; I25.10 Atherosclerotic heart disease of native coronary artery without angina pectoris; Z95.0 Presence of cardiac pacemaker; Z95.1 Presence of aortocoronary bypass graft
CPT/HCPCS: 36415; 71045; 71275; 76376; 80053; 82728; 82962; 83605; 83615-TC; 83880; 84484; 85025; 85379; 85384-TC; 85610-TC; 85730-TC; 86140; 87040-TC; 87081; 93005; 93306; 93970; 94640; 94664; 94760; 96361; 96365; 96367; 96375; J0456; J0696; J1100; J1650; J1815; J1940; J2060; J3480; J7030; J7040; J7050; J7060; Q9967